=== PATIENT | male | born 1965 | race Caucasian/White ===

== ENCOUNTER 2025-08-02 11:23 | Observation (INO) | payer OTHER ==
[~2025-08-02] VITALS: Ht 177.8 cm; Wt 116.5 kg
[~2025-08-02 11:23] MED LIST: IBUP600 PO; LOSARTAN-HCTZ1 EAC1 PO; METO10 PO; METO50ER PO; Norco 5-325 Ta1 EACH PO; Zofran8 MG PO
[2025-08-02] MEDS ORDERED: Magnesium Sulf 2 GM/Water 50ML 50 ML IV ONE (11:35)
[2025-08-02] MEDS ORDERED: NS 500 ML IV SCH (11:35)
[2025-08-02 12:07] LABS: BASOPHILS ABSOLUTE AUTO 0.03 K/mm3 (0.00-0.23); BASOPHILS PERCENT AUTO 0 % (0-2); EOSINOPHILS ABSOLUTE AUTO 0.09 K/mm3 (0.00-0.68); EOSINOPHILS PERCENT AUTO 1 % (0-6); Hematocrit 44.7 % (37.0-53.0); Hemoglobin 15.7 g/dL (13.5-17.5); IMMATURE GRAN ABSOLUTE AUTO 0.03 K/mm3 (0.00-0.10); IMMATURE GRAN PERCENT AUTO 0 % (0-1); LYMPHOCYTES ABSOLUTE AUTO 1.23 K/mm3 (0.84-5.20); LYMPHOCYTES PERCENT AUTO 18 % (21-46); MONOCYTES ABSOLUTE AUTO 0.87 K/mm3 (0.16-1.47); MONOCYTES PERCENT AUTO 13 % (4-13); Mean Corpuscular HGB Conc 35.1 g/dL (31.5-36.5); Mean Corpuscular Volume 85 fL (80-100); NEUTROPHILS ABSOLUTE AUTO 4.57 K/mm3 (1.96-9.15); NEUTROPHILS PERCENT AUTO 67 % (41-73); NRBC ABSOLUTE 0.00 K/mm3 (0.00-0.02); NRBC Auto 0.0 /100 WBC (0.0-0.2); Platelet Count 227 K/mm3 (150-400); RDW Coefficient Variation 13.2 % (11.7-14.2); RDW Standard Deviation 41.3 fL (35.1-46.3)
[2025-08-02] MEDS ORDERED: Diltiazem HCl 5 MG / ML 5ML Vial IV ONE (12:30)
[2025-08-02 12:53] LABS: Alanine Aminotransfer (ALT/SGP 40.0 U/L (12-78); Albumin, Blood 3.4 g/dL (3.4-5.0); Albumin/Globulin Ratio 0.9 (0.8-1.8); Anion Gap 8.0 mmol/L (3-11); Aspartate Aminotrans (AST/SGOT 31.0 U/L (12-37); Bilirubin, Total 0.7 mg/dL (0.1-1.0); Blood Urea Nitrogen 19.0 mg/dL (8-24); CO2, Blood 27.0 mmol/L (21-32); Calcium, Blood 9.0 mg/dL (8.5-10.1); Chloride, Blood 107.0 mmol/L (98-108); Creatinine, Blood 0.51 mg/dL (0.60-1.20); Globulin, Blood 3.9 g/dL (2.2-4.0); Glucose, Blood 134.0 mg/dL (70-99); Magnesium, Blood 2.5 mg/dL (1.6-2.4); Potassium, Blood 3.5 mmol/L (3.5-5.5); Sodium, Blood 138.0 mmol/L (136-145); Total Protein, Blood 7.3 g/dL (6.4-8.2)
[2025-08-02] MEDS ORDERED: FLU VACC TS2025-26(6MOS UP)/PF 45 MCG/0.5 ML SYRINGE IM SCH (13:50)
[2025-08-02 14:59] LABS: Anti-Xa UFH, PHA Monitoring <0.10 IU/mL; Prothrombin Time Results 10.6 Sec (9.7-11.5)
[2025-08-02] MEDS ORDERED: Dose Adjust by Pharmacy XX STA (15:08)
[2025-08-02] MEDS ORDERED: Heparin Sodium 5000 Units/ML 1ML MDV IV ONE (15:10)
[2025-08-02] MEDS ORDERED: Heparin Sodium,Porcine/0.5 NS 500 ML IV SCH (15:10)
[2025-08-02 18:09] VITALS: BP 158/100
[2025-08-02] MEDS ORDERED: ATORVASTATIN PO (18:21)
[2025-08-02 19:19] VITALS: BP 160/98
[2025-08-02 23:23] VITALS: BP 135/82
[2025-08-03] MEDS ORDERED: Clarify Drug Order XX ONE (00:50)
--- NOTE | 2025-08-03 03:18 | NUR ---
UPDATE PATIENT'S HR LOW 100'S AT REST BUT INCREASED TO 140-150'S EVEN WITH SLIGHT REPOSITIONING SELF IN BED. ASSESSED PATIENT IN ROOM. DENIES CP, SOB, OR NAUSEA. CARDIZEM RESTARTED @ 10MG/HR. PATIENT EDUCATED ON REASON FOR MEDICATION. DENIES ANY NEEDS AT THIS TIME. CONTINUE PLAN OF CARE.
[2025-08-03 03:51] VITALS: BP 122/70
[2025-08-03 04:58] LABS: BASOPHILS ABSOLUTE AUTO 0.04 K/mm3 (0.00-0.23); BASOPHILS PERCENT AUTO 1 % (0-2); EOSINOPHILS ABSOLUTE AUTO 0.14 K/mm3 (0.00-0.68); EOSINOPHILS PERCENT AUTO 2 % (0-6); Hematocrit 43.9 % (37.0-53.0); Hemoglobin 14.7 g/dL (13.5-17.5); IMMATURE GRAN ABSOLUTE AUTO 0.03 K/mm3 (0.00-0.10); IMMATURE GRAN PERCENT AUTO 0 % (0-1); LYMPHOCYTES ABSOLUTE AUTO 1.38 K/mm3 (0.84-5.20); LYMPHOCYTES PERCENT AUTO 17 % (21-46); MONOCYTES ABSOLUTE AUTO 0.87 K/mm3 (0.16-1.47); MONOCYTES PERCENT AUTO 11 % (4-13); Mean Corpuscular HGB Conc 33.5 g/dL (31.5-36.5); Mean Corpuscular Volume 89 fL (80-100); NEUTROPHILS ABSOLUTE AUTO 5.81 K/mm3 (1.96-9.15); NEUTROPHILS PERCENT AUTO 70 % (41-73); NRBC ABSOLUTE 0.00 K/mm3 (0.00-0.02); NRBC Auto 0.0 /100 WBC (0.0-0.2); Platelet Count 213 K/mm3 (150-400); RDW Coefficient Variation 13.6 % (11.7-14.2); RDW Standard Deviation 44.7 fL (35.1-46.3)
[2025-08-03] MEDS ORDERED: Dose Adjust by Pharmacy XX STA ×2 (05:27→12:28)
[2025-08-03 05:45] LABS: Alanine Aminotransfer (ALT/SGP 33.0 U/L (12-78); Albumin, Blood 3.2 g/dL (3.4-5.0); Albumin/Globulin Ratio 0.9 (0.8-1.8); Anion Gap 9.0 mmol/L (3-11); Aspartate Aminotrans (AST/SGOT 35.0 U/L (12-37); Bilirubin, Total 0.6 mg/dL (0.1-1.0); Blood Urea Nitrogen 13.0 mg/dL (8-24); CO2, Blood 26.0 mmol/L (21-32); Calcium, Blood 8.4 mg/dL (8.5-10.1); Chloride, Blood 107.0 mmol/L (98-108); Creatinine, Blood 0.51 mg/dL (0.60-1.20); Globulin, Blood 3.7 g/dL (2.2-4.0); Glucose, Blood 129.0 mg/dL (70-99); Potassium, Blood 3.7 mmol/L (3.5-5.5); Sodium, Blood 138.0 mmol/L (136-145); Thyroid Stimulating Hormone 3.84 uIU/mL (0.360-4.800); Total Protein, Blood 6.9 g/dL (6.4-8.2)
--- NOTE | 2025-08-03 06:00 | NUR ---
SHIFT SUMMARY PATIENT A/OX4 T/O SHIFT. NO CP, CHEST PRESSURE, SOB, OR NAUSEA REPORTED. PATIENT MENTIONED MULTIPLE TIMES THAT HE IS FEELING "MUCH BETTER THAN LAST FEW DAYS." CARDIZEM INFUSING 5-10/MG HR, CURRENTLY AT 5MG/HR. HAD PERIOD OF TIME AFTER MIDNIGHT THAT IT WAS TITRATED OFF, BUT HR STEADILY INCREASED TO 120-130'S ESPECIALLY WITH MINIMAL MOVEMENT. PATIENT DENIED ANY SYMPTOMS DURING THIS TIME. PATIENT'S STAYED WITH HIM AT BEDSIDE OVERNIGHT. PATIENT USING CALL LIGHT APPROPRIATELY AND ABLE TO MAKE NEEDS KNOWN. CALL LIGHT IN REACH AND BED IN LOWEST POSITION.
--- NOTE | 2025-08-03 07:34 | NUR ---
ASSUMPTION NOTE: THIS RN TO ASSUME CARE OF PATIENT. PATIENT IS AWAKE IN BED AND TALKING WITH FAMILY AT BEDSIDE. PATIENT DENIED ANY CHEST PAIN/PRESSURE. HAS HEPARIN RUNNING AT 25.8ML/HR AND DILT AT 5MG/HR WELL. PATIENT ON ROOM AIR, VITAL SIGNS STABLE AND HAS CALL LIGHT WITHIN REACH, BED IN LOWEST LOCKED POSIITON STATING NOTHING ELSE IS NEEDED AT THIS TIME.
[2025-08-03 07:35] VITALS: BP 152/84
--- NOTE | 2025-08-03 08:45 | NUR ---
MD ROUNDED: MD ROUNDED AND SPOKE WITH PATIENT AND FAMILY AT [facility]. DILT DRIP WAS INCREASED TO 15MG/HR PATIENTS HEART RATE IN 150'S. MD LET PATIENT KNOW WE WOULD TRY AN ORAL VERSION OF THE DILT WELL AND WORK ON TURNING OFF THE DRIP LATER TODAY AND POSSIBLY LOOKING AT GOING HOME IF HEART RATE IS UNDER CONTROL. PATIENT AWARE AND AWAITING MEDCIATION TO BE VERFIED.
[2025-08-03 11:20] VITALS: BP 136/89
--- NOTE | 2025-08-03 14:39 | NUR ---
MD CALLED: THIS RN CALLED MD REGARDING PATIENTS DRIP BEING TURNED OFF AROUND 12 AND PATIENT HEART RATE TOUCHING 130 WHEN UP TO THE RESTROOM. VERBAL ORDER GIVEN TO STOP HEPARIN,PHARMACIST NOTIFIED.
[2025-08-03] MEDS ORDERED: DILT180 PO (15:55)
--- NOTE | 2025-08-03 16:27 | NUR ---
DISCHARGE NOTE: PATIENT IS ALERT AND ORIENTED X4 & UNDERSTOOD TO [employer] NEW MEDICATION FROM [facility]. FAMILY AT BEDSIDE WHEN GOING OVER DISCHARGE PAPERWORK TO FOLLOW UP WITH PRIMARY WITHIN ONE WEEK AND TO CHECK BLOOD PRESSURE AND PULSE AND TAKE MEASUREMENTS WITH HIM TO FOLLOW UP APPOINTMENT. PATIENT WALKED OUT WITH ALL PERSONAL BELONGINGS.
[2025-08-05 15:03] LABS: TSH RECEPTOR ANTIBODY <1.10 IU/L (<=1.75)
== END 2025-08-03 16:26 | disposition home or self-care (01) ==
LOC: ER 11:23 → PCU 11:24 → ERHOLD 11:24 → PCU 18:00
PROVIDERS: Student in an Organized Health Care Education/Training Program; ADMIT Student in an Organized Health Care Education/Training Program
DX: I48.91 Unspecified atrial fibrillation (principal); I48.92 Unspecified atrial flutter; R94.31 Abnormal electrocardiogram [ECG] [EKG]; R79.89 Other specified abnormal findings of blood chemistry; I10 Essential (primary) hypertension; E78.5 Hyperlipidemia, unspecified; Z88.0 Allergy status to penicillin; Z79.899 Other long term (current) drug therapy; Z90.49 Acquired absence of other specified parts of digestive tract; Z59.89 Other problems related to housing and economic circumstances
CPT/HCPCS: 36415; 71045; 80053; 83036; 83520; 83735; 83880; 84443; 85025; 85520; 85610; 85730; 93005; 93010; 93306; 94762; 96365; 96366; 96367; 96368; 96376; 99285-25; A9270; G0378; J1160; J1644; J3475; J7030